=== PATIENT | male | born 1990 ===

== ENCOUNTER 2018-09-20 22:47 | Emergency (ER) | payer BC ==
[2018-09-21] MEDS: LIDOCAINE 1% (MDV) 20 ML INJ SC (03:29)
[2018-09-21] MEDS: HYDROCODONE/APAP (10/325) TAB PO (03:31)
[2018-09-21] MEDS: IBUPROFEN 800 MG TAB PO (03:35)
[2018-09-21] MEDS: DIPHTH/TET/ACEL PERTUSS (ADULT) 0.5 ML VIAL IM* (03:35)
[2018-09-21] MEDS: BACITRACIN 0.9 GM OINT TOP (03:55)
== END 2018-09-21 04:40 | disposition home or self-care (01) ==
LOC: FTE 22:47
DX: S92.421A Displaced fracture of distal phalanx of right great toe, initial encounter for closed fracture (principal); W20.8XXA Other cause of strike by thrown, projected or falling object, initial encounter; Y92.9 Unspecified place or not applicable; Z23 Encounter for immunization
CPT/HCPCS: 11740; 73660; 90471; 90715; 99283-25